=== PATIENT | male | born 1945 | race Caucasian/White ===

== ENCOUNTER 2016-05-23 11:44 | Emergency (ER) | payer MEDICARE ==
[~2016-05-23 11:44] MED LIST: APRESOLINE-DPS25 MG PO; ASA CHILDREN'S81 MG PO; CARVEDILOL25 MG PO; DYAZIDE 37.5-21 EACH PO; KRILL OIL500 MG PO; MAALOX DPS30 ML PO; MOTRIN IB200 MG PO; NITROSTAT0.4 MG SL; NORVASC5 MG PO; SURFAK DPS240 MG PO; SYNTHROID DPS0.1 MG PO; THERA1 EACH PO; TYLENOL DPS325 MG PO; ZESTRIL DPS20 MG PO; ZOCOR DPS40 MG PO
--- NOTE | 2016-05-25 16:02 | ER ---
ADMIT: 05/23/2016 RM/LOC: ER [facility] MR#: [id number] [id number] [place], [place] [id number] HENRY LAROSE [address] [place] [address] Emergency Room Report SEX: M AGE: 71 : 1945 DATE: 05/23/2016 TIME: 1144 hours. Please refer to my T-sheet for complete H and P. HISTORY OF PRESENT ILLNESS: Briefly, the patient is a 71-year-old, came in. He was actually at the [facility], getting his pacer looked at for routine check when he got lightheaded and passed out. He states that he has been on 5 blood pressure medications and after the morning, taking his dose, all it was about an hour to 2 later, he gets very lightheaded. He normally sits down. He was in the office, though where he did pass out, did not bite his tongue. No loss of bowel or bladder control. They interrogated his pacer over there according to [facility], it was okay. PHYSICAL EXAMINATION: VITAL SIGNS: Stable. Blood pressure is 148/76. GENERAL: He is in no acute distress. HEENT: Grossly normal. LUNGS: Clear. HEART: Regular. ABDOMEN: Soft. SKIN: No rash. NEUROLOGIC: Alert and oriented. Nonfocal. EMERGENCY DEPARTMENT COURSE: We did orthostatic blood pressures, sitting 119/69, lying 122/65, standing 117/66. He was asymptomatic at this time with it. His chest x-ray revealed cardiomegaly, no acute changes. EKG was sinus rhythm, rate at 70. No changes. Chemistries normal except creatinine of 2.1, which he has had renal insufficiency in the past. CBC normal except hemoglobin of 12.2. Troponin negative. I discussed with Dr. Lai. They will be following up with him in the [facility]. We are going to stop his Norvasc. ASSESSMENT: Syncope, most likely secondary to the multiple blood pressure medications that he is on. PLAN: Stop his amlodipine, return if worse. Follow up with [facility] afterwards. Dez Barnes MD/ renita JOB #: [id number] CC: Dez Barnes MD, Attending Physician UNKNOWN, Family Physician . [facility] Get Lai MD
[2016-10-11] MEDS ORDERED: TYLENOL DPS325 MG PO (14:32)
[2016-10-11] MEDS ORDERED: MAALOX DPS30 ML PO (14:32)
[2016-10-11] MEDS ORDERED: NITROSTAT0.4 MG SL (14:32)
[2016-10-11] MEDS ORDERED: COLACE-DPS100 MG PO (14:33)
[2016-10-11] MEDS ORDERED: DELTASONE DPS1 MG (14:33)
[2016-10-11] MEDS ORDERED: PRILOSEC DPS20 MG PO (14:34)
[2016-10-11] MEDS ORDERED: AUGMENTIN XR1 GM PO (14:34)
[2016-10-11] MEDS ORDERED: LASIX DPS40 MG PO (14:34)
== END 2016-05-23 13:30 | disposition home or self-care (01) ==
LOC: ER 11:44
DX: T50.905A Adverse effect of unspecified drugs, medicaments and biological substances, initial encounter (principal); R55 Syncope and collapse; N28.9 Disorder of kidney and ureter, unspecified; Z79.82 Long term (current) use of aspirin; Z79.899 Other long term (current) drug therapy

== ENCOUNTER → 2016-06-28 | Outpatient (CLI) | payer MEDICARE ==
[~2016-06-28] MED LIST changes: +AUGMENTIN XR1 GM PO; +CARAFATE DPS1 GM PO; +COLACE-DPS100 MG PO; +COQ-10100 MG PO; +DELTASONE DPS1 MG; +LASIX DPS40 MG PO; +PLAVIX75 MG PO; +PRILOSEC DPS20 MG PO; +RANEXA500 MG PO; +ZANTAC DPS150 MG PO; +ZYRTEC DPS10 MG PO
== END | disposition home or self-care (01) ==
LOC: RAD.S 06-27 11:51
DX: R06.00 Dyspnea, unspecified (principal); R79.1 Abnormal coagulation profile; R60.0 Localized edema; Z98.890 Other specified postprocedural states

== ENCOUNTER → 2016-07-04 | Outpatient (CLI) | payer MEDICARE | END | disposition home or self-care (01) | LOC: RESC 06-26 15:02 | DX: R06.02 Shortness of breath (principal) ==

== ENCOUNTER 2016-07-11 09:54 | Emergency (ER) | payer MEDICARE ==
[~2016-07-11 09:54] MED LIST changes: -AUGMENTIN XR1 GM PO; -CARAFATE DPS1 GM PO; -COLACE-DPS100 MG PO; -COQ-10100 MG PO; -DELTASONE DPS1 MG; -LASIX DPS40 MG PO; -PLAVIX75 MG PO; -PRILOSEC DPS20 MG PO; -RANEXA500 MG PO; -ZANTAC DPS150 MG PO; -ZYRTEC DPS10 MG PO
--- NOTE | 2016-07-22 21:34 | ER ---
ADMIT: 07/11/2016 RM/LOC: ER [facility] MR#: [id number] [id number] [place], [place] [address] HENRY LAROSE [address] [place] [address] Emergency Room Report SEX: M AGE: 71 : 1945 DATE: 07/11/2016 ADDENDUM: This patient comes to the ER because he feels like he has a foreign body in his throat. He feels like he just needs to cough it up. On physical exam, his lungs are clear. I do not see any redness in his throat. However, he does have a large uvula, and it does appear to be puffy pink consistent with like an allergy. Soft tissue of his neck was normal. DIAGNOSIS: Uvulitis. DISCUSSION: He was given Benadryl in the ER. We will have him take Zyrtec over the counter and follow up with his primary as needed. Return to the ER if any difficulty breathing. SANTIAGO Merrill / Aj Alanis MD / toril JOB #: [id number] CC: Aj Alanis MD, Attending Physician Get Lai MD, Family Physician
[2016-10-11] MEDS ORDERED: TYLENOL DPS325 MG PO (14:32)
[2016-10-11] MEDS ORDERED: NITROSTAT0.4 MG SL (14:32)
[2016-10-11] MEDS ORDERED: MAALOX DPS30 ML PO (14:32)
[2016-10-11] MEDS ORDERED: DELTASONE DPS1 MG (14:33)
[2016-10-11] MEDS ORDERED: COLACE-DPS100 MG PO (14:33)
[2016-10-11] MEDS ORDERED: AUGMENTIN XR1 GM PO (14:34)
[2016-10-11] MEDS ORDERED: PRILOSEC DPS20 MG PO (14:34)
[2016-10-11] MEDS ORDERED: LASIX DPS40 MG PO (14:34)
== END 2016-07-11 12:13 | disposition home or self-care (01) ==
LOC: ER 09:54
DX: K12.2 Cellulitis and abscess of mouth (principal); I10 Essential (primary) hypertension; E78.00 Pure hypercholesterolemia, unspecified; E03.9 Hypothyroidism, unspecified; Z95.1 Presence of aortocoronary bypass graft

== ENCOUNTER → 2016-07-14 | Outpatient (CLI) | payer MEDICARE ==
[~2016-07-14] MED LIST changes: +AUGMENTIN XR1 GM PO; +CARAFATE DPS1 GM PO; +COLACE-DPS100 MG PO; +COQ-10100 MG PO; +DELTASONE DPS1 MG; +LASIX DPS40 MG PO; +PLAVIX75 MG PO; +PRILOSEC DPS20 MG PO; +RANEXA500 MG PO; +ZANTAC DPS150 MG PO; +ZYRTEC DPS10 MG PO
== END | disposition home or self-care (01) ==
LOC: PTH.S 10:45
DX: R07.9 Chest pain, unspecified (principal); R79.89 Other specified abnormal findings of blood chemistry

== ENCOUNTER 2016-08-03 06:01 | Observation (INO) | payer MEDICARE ==
[~2016-08-03] VITALS: Ht 180.3 cm; Wt 117.0 kg
--- NOTE | ~2016-08-03 | CATH ---
Cardiac Diagnostic + PCI Report Demographics Patient Name THUAN Toledo Gender Male Date of 1945 Age 71 year(s) Patient Number [id number] Date of Study 08/03/2016 Visit Number [id number] Room Number 415 Corporate ID Ht 182.88 cm Wt 117.03 kg Accession Number [id number] BSA 2.37 m kg/m Referring Latonia VALDEZ Primary Physician Physician Jimmy Performing Latonia VALDEZ Secondary Physician Physician Jimmy Diagnostic Latonia VALDEZ Assisting Physician Physician Jimmy Interventional Latonia VALDEZ Physician Information Clerk Cashier Physician Jimmy Findings and Conclusions Diagnostic Findings and Conclusion 1. 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 2. Patent DALEY to OMB and patient RAJ to LAD. 2. Moderately elevated LVEDP Diagnostic Recommendations 1. iFR 60% mCircumflex lesion Interventional Findings and Conclusion 1. iFR of mCircumflex lesion non-significant per iFR Interventional Recommendations 1. Medical therapy Procedure Description The patient was brought to the diagnostic cardiac catheterization laboratory in the fasting, non-sedated state. Informed consent was obtained in the written and verbal form after the risks and benefits were explained. The patient had no further questions and agreed to proceed. The planned puncture-incision site(s) were shaved and prepped with ChloraPrep and draped in the usual sterile manner. Conscious sedation, supplemental oxygen, and pain control medications were delivered by a registered nurse under physician guidance. Surface ECG rhythm, blood pressure measurement, and pulse oximetry were monitored throughout the procedure. Arterial access. The right femoral access site was infiltrated with lidocaine. The vessel was entered with the Seldinger technique. A 6F sheath was advanced into the vessel and used for catheter placement. Selective left coronary angiography. A FL4 catheter was advanced into the left coronary vessel ostium under Fluoroscopic guidance. Contrast was injected by hand. Images were obtained in multiple projections. Selective right coronary angiography. A JR4 catheter was advanced into the right coronary vessel ostium under fluoroscopic guidance. Contrast was injected by hand. Images were obtained in multiple projections. Selective DALEY graft angiography. A PRC catheter was advanced into the left internal mammary graft ostium under fluoroscopic guidance. Contrast was injected by hand. Images were obtained in multiple projections. DALEY -> OM1 graft patent. Selective RAJ graft angiography. A PRC catheter was advanced into the right internal mammary graft ostium under fluoroscopic guidance. Contrast was injected by hand. Images were obtained in multiple projections. RAJ -> LAD graft patent. Selective SVG angiography. A JR4 catheter was advanced into the graft proximal anastomosis under fluoroscopic guidance. Contrast was injected by hand. Images were obtained in multiple projections. SVG -> Circumflex graft chronically occluded. iFR measurement was performed. The Circumflex vessel was entered with an XB 3.5 guiding catheter. The iFR wire was normalized and then advanced across the mCX lesion. Measurements were taken. iFR measurements were 0.95. Left heart catheterization. A JR4 catheter was advanced across the aortic valve to the left ventricle under fluoroscopic guidance. Resting hemodynamics were obtained. Arterial artery hemostasis. Hemostasis was achieved with manual compression. The patient was transferred to outpatient recovery via cart accompanied by a nurse. The patient left the laboratory in stable condition. Diagnostic Cath Status: Elective Procedure Procedure Type Diagnostic procedure:Angiography:, Coronary Angios w/LHC & Grafts PCI procedure:Additional Imaging:, FFR/iFR:, Initial Vessel Indications: CAD, Early family history of CAD, Previous WA, Previous stent placement, History of CABG, Ischemic Cardiomyopathy, Hyperlipidemia, Hypertension, Tobacco use-prior, CHF, Chest pain and Abnormal nuclear perfusion test. The procedure was explained in detail to the patient. Risks, complications and alternative treatments were reviewed. Written consent was obtained. Medications Reviewed with Patient prior to Procedure. Complications: No Complication. Angiographic Findings Dominance: Right Cardiac Arteries and Lesion Findings LMCA: Normal (0% Stenosis).Short Left Main LAD: Abnormal. Lesion on Prox LAD: Ostial.100% stenosis . LCx: Abnormal. Lesion on Prox CX: 60% stenosis . Devices used - VERRATA. Number of passes: 1. Lesion on Mid CX: 40% stenosis . Lesion on 1st Ob Lilian% stenosis . Lesion on 2nd Ob Lilian% stenosis . RCA: Abnormal. Lesion on Prox RCA: Ostial.100% stenosis .Chronic total occlusion. Graft Lesions Lesion on Aorta Left to Mid CX: 100% stenosis . Cardiac Grafts - There is a RAJ graft that originates at the RAJ and attaches to the Mid LAD (Patent). - There is a DALEY graft that originates at the DALEY and attaches to the 1st Ob Lilian (Patent). - There is a Vein graft that originates at the Aorta Left and attaches to the Mid CX. Coronary Tree Procedure Data Procedure Date Date: 08/03/2016Start: 01:17 PMEnd: 02:35 PM Entry Locations - Percutaneous access was performed through the Right Femoral artery (Primary location). A 6 Fr sheath was inserted. Hemostasis was successfully obtained using a pressurized flush bag which was connected to the sheath and it was sutured in place . Procedure Medications Order and Administration + + + +--------+ !Time !Medication !Dosage !Route ! + + + +--------+ 08/03/2016 01:30 PM !Versed !1 mg !I.V. ! + + + +--------08/03/2016 01:30 PM !Fentanyl !25 mcg !I.V. ! + + + +--------+ 08/03/2016 01:30 PM !Sodium Chloride !10 ml !I.V. ! + + + +--------+ !08/03/2016 01:37 PM !Versed !1 mg !I.V. ! + + + +--------+ !08/03/2016 01:37 PM !Fentanyl !25 mcg !I.V. ! + + + +--------+ !08/03/2016 01:40 PM !Fentanyl !25 mcg !I.V. ! + + + +--------+ !08/03/2016 02:07 PM !Heparin (ACC_3) !7000 units !I.V. ! + + + +--------+ Devices Used - ACATH 6FR MULTIPACK CATHETERSwas used for:Coronary Angios. - ACATH 6FR MULTIPACK CATHETERSwas used for:LV Pressures. - ACATH 6F PRC CATHETER 100CMwas used for:RAJ. - ACATH 6F PRC CATHETER 100CMwas used for:DALEY. - AGUIDE CATHETER 6FR XB 3.5 100CMwas used for:Circumflex Intervention. Contrast Material - Isovue 63433 ml Fluoroscopy Time: Diagnostic: 9:36 minutes. Total: 9:36 minutes. Fluoroscopy Dose: Diagnostic: 1284 mGy. Total: 1284 mGy. Estimated Blood Loss: 10 ml. Medical History Performed Procedures and Imaging Results - Stress testing with SPECT MPIwas performed on 06/21/2016. Results were: Positive. Risk/Extent of ischemia was: Intermediate risk. Allergies - No known allergies. Risk Factors The patient risk factors include:prior PCI on 03/26/1989; prior CABG on 04/05/1984;hypertension, family history of premature CAD, last creatinine: 1 mg/dl, creatinine clearance: 108.9 ml/min, dyslipidemia, former tobacco use, prior heart failure and prior [place] . Admission Data Admission Date: 08/03/2016 Admission Time: 04:38 PM Insurance Payors: Medicare. Clinical Evaluation Leading to Procedure - The patient's CAD presentation was assessed as: Stable angina. - The patient's anginal syndrome during the past two weeks was assessed as: Class II according to the [place] Cardiovascular Society Classification System (CCS). Anti-anginal medications were prescribed during the past two weeks. The medications are: Beta Blockers and Ranolazine. - The patient has been in a state of heart failure within the past two weeks. - The patient's heart failure status was assessed as NYHA Class II, with CHF symptoms of BEGUM. - The reason for the patient's medical laboratory assistant visit is evaluation of cardiomyopathy and/or evaluation of left ventricular systolic dysfunction. Hemodynamics Condition: Rest O2 Consumption: Estimated: 273.34Heart Rate: 70 bpm Pressures (mmHg) +-----+ + !Site !Pressure ! +-----+ + !AO !150/84 (112) ! +-----+ + !LV !158/10 ,35 ! +-----+ + !LV !160/10 ,22 ! +-----+ + !AO !162/83 (116) ! +-----+ + !LV !155/10 ,21 ! +-----+ + Valve Gradients and Areas + +---------+---------+---------+ +---------+ + !Valve !Peak !Mean !Area !Index !Flow !Source ! + +---------+---------+---------+ +---------+ + !Aortic !0 !0 ! ! ! ! ! + +---------+---------+---------+ +---------+ + !Aortic !0 !0 ! ! ! ! ! + +---------+---------+---------+ +---------+ + Shunts Oxygen Values O2 Capacity 170 O2 Consumption 273.34 Discharge Data Discharge Date: 08/03/2016 Hospital Status: Inpatient Signatures
[~2016-08-03 06:01] MED LIST changes: -AUGMENTIN XR1 GM PO; -CARAFATE DPS1 GM PO; -COLACE-DPS100 MG PO; -COQ-10100 MG PO; -DELTASONE DPS1 MG; -LASIX DPS40 MG PO; -PLAVIX75 MG PO; -PRILOSEC DPS20 MG PO; -RANEXA500 MG PO; -ZANTAC DPS150 MG PO; -ZYRTEC DPS10 MG PO
[2016-08-04] MEDS ORDERED: ZANTAC DPS150 MG PO (11:53)
[2016-08-04] MEDS ORDERED: COQ-10100 MG PO (11:53)
[2016-08-04] MEDS ORDERED: PLAVIX75 MG PO (11:53)
[2016-08-04] MEDS ORDERED: ZYRTEC DPS10 MG PO (11:54)
[2016-08-04] MEDS ORDERED: CARAFATE DPS1 GM PO (11:54)
[2016-08-04] MEDS ORDERED: RANEXA500 MG PO (11:54)
[2016-10-11] MEDS ORDERED: NITROSTAT0.4 MG SL (14:32)
[2016-10-11] MEDS ORDERED: MAALOX DPS30 ML PO (14:32)
[2016-10-11] MEDS ORDERED: TYLENOL DPS325 MG PO (14:32)
[2016-10-11] MEDS ORDERED: DELTASONE DPS1 MG (14:33)
[2016-10-11] MEDS ORDERED: COLACE-DPS100 MG PO (14:33)
[2016-10-11] MEDS ORDERED: AUGMENTIN XR1 GM PO (14:34)
[2016-10-11] MEDS ORDERED: PRILOSEC DPS20 MG PO (14:34)
[2016-10-11] MEDS ORDERED: LASIX DPS40 MG PO (14:34)
== END 2016-08-03 23:20 | disposition home or self-care (01) ==
LOC: SSS 06:01 → 4PCU 13:00 → SSS 13:00 → 4PCU 16:38
PROVIDERS: ADMIT Internal Medicine Cardiovascular Disease
DX: I25.118 Atherosclerotic heart disease of native coronary artery with other forms of angina pectoris (principal); I25.5 Ischemic cardiomyopathy; I10 Essential (primary) hypertension; Z45.02 Encounter for adjustment and management of automatic implantable cardiac defibrillator; Z79.899 Other long term (current) drug therapy; Z79.82 Long term (current) use of aspirin; Z87.891 Personal history of nicotine dependence

== ENCOUNTER 2016-08-04 11:18 | Emergency (ER) | payer MEDICARE ==
[2016-08-04] MEDS ORDERED: COQ-10100 MG PO (11:53)
[2016-08-04] MEDS ORDERED: ZANTAC DPS150 MG PO (11:53)
[2016-08-04] MEDS ORDERED: PLAVIX75 MG PO (11:53)
[2016-08-04] MEDS ORDERED: ZYRTEC DPS10 MG PO (11:54)
[2016-08-04] MEDS ORDERED: RANEXA500 MG PO (11:54)
[2016-08-04] MEDS ORDERED: CARAFATE DPS1 GM PO (11:54)
--- NOTE | 2016-08-05 08:46 | ER ---
ADMIT: 08/04/2016 RM/LOC: ER [facility] MR#: [id number] [address] [address] HENRY LAROSE [address] [place] [address] Emergency Room Report SEX: M AGE: 71 : 1945 DATE: 08/04/2016 A 71-year-old was brought to the Emergency Department by rescue after he had a near syncopal episode at home. He apparently had a heart catheterization yesterday that did well. He was at home watching TV. When he stood up, became exceedingly lightheaded, nearly passed out, sat back down and called the ambulance. He said he has had this happen to him numerous times before. He always associates this with occurring shortly after he takes his medications. See T-sheet for remainder history and physical. CBC was significant for hemoglobin 12.3. Electrolytes: BUN of 29, a creatinine at 2.2, and glucose of 101. The patient was diagnosed with lightheadedness. Encouraged to the drink plenty of fluids. See Dr. Lai on Sunday. Aj Alanis MD/ renita JOB #: [id number] CC: Aj Alanis MD, Attending Physician
[2016-10-11] MEDS ORDERED: MAALOX DPS30 ML PO (14:32)
[2016-10-11] MEDS ORDERED: TYLENOL DPS325 MG PO (14:32)
[2016-10-11] MEDS ORDERED: NITROSTAT0.4 MG SL (14:32)
[2016-10-11] MEDS ORDERED: COLACE-DPS100 MG PO (14:33)
[2016-10-11] MEDS ORDERED: DELTASONE DPS1 MG (14:33)
[2016-10-11] MEDS ORDERED: LASIX DPS40 MG PO (14:34)
[2016-10-11] MEDS ORDERED: AUGMENTIN XR1 GM PO (14:34)
[2016-10-11] MEDS ORDERED: PRILOSEC DPS20 MG PO (14:34)
== END 2016-08-04 13:15 | disposition home or self-care (01) ==
LOC: ER 11:18
DX: R42 Dizziness and giddiness (principal); Z95.1 Presence of aortocoronary bypass graft; E78.5 Hyperlipidemia, unspecified; I11.0 Hypertensive heart disease with heart failure; I50.9 Heart failure, unspecified; I25.10 Atherosclerotic heart disease of native coronary artery without angina pectoris; I25.2 Old myocardial infarction; Z79.82 Long term (current) use of aspirin; Z79.01 Long term (current) use of anticoagulants; Z79.899 Other long term (current) drug therapy